=== PATIENT | male | born 1990 | race Caucasian/White ===

== ENCOUNTER 2021-08-05 06:53 | Inpatient (IN) | payer BC ==
[~2021-08-05] VITALS: Ht 167.6 cm; Wt 79.4 kg
[2021-08-05 07:50] LABS: HEMOGLOBIN 13.2 gm/dl (14.0-17.5); RED BLOOD COUNT 4.2 M/UL (4.20-5.50); WHITE BLOOD COUNT 10.2 K/UL (4.5-11.0)
[2021-08-05 08:11] LABS: BUN/CREATININE RATIO 20 (0-10)
[2021-08-06 05:23] LABS: HEMOGLOBIN 12.6 gm/dl (14.0-17.5); RED BLOOD COUNT 4.03 M/UL (4.20-5.50)
[2021-08-06 05:25] LABS: WHITE BLOOD COUNT 7.3 K/UL (4.5-11.0)
[2021-08-06 05:52] LABS: BUN/CREATININE RATIO 20 (0-10)
[2021-08-07 03:16] LABS: BUN/CREATININE RATIO 32 (0-10)
[2021-08-07] MEDS ORDERED: MEDROL TAB 4 MG4 MG PO (16:14)
[2021-08-07] MEDS ORDERED: INDOCIN 50 MG C50 MG PO (16:14)
[2021-08-07] MEDS ORDERED: PROTONIX40 MG PO (16:14)
== END 2021-08-07 17:30 | disposition home or self-care (01) | DRG 287 ==
LOC: ER1 06:53 → PROG CARE 09:04 → CDU 09:04 → CCU 14:23 → PROG CARE 08-06 18:11
PROVIDERS: Physician Assistant Medical; Student in an Organized Health Care Education/Training Program; ADMIT Internal Medicine
PROC: B24BZZZ Ultrasonography of Heart with Aorta (ICD-10-PCS; principal; 2021-08-05)
PROC: 4A023N7 Measurement of Cardiac Sampling and Pressure, Left Heart, Percutaneous Approach (ICD-10-PCS; 2021-08-05)
PROC: B2111ZZ Fluoroscopy of Multiple Coronary Arteries using Low Osmolar Contrast (ICD-10-PCS; 2021-08-05)
PROC: 3E0333Z Introduction of Anti-inflammatory into Peripheral Vein, Percutaneous Approach (ICD-10-PCS; 2021-08-05)
PROC: 8E0ZXY6 Isolation (ICD-10-PCS; 2021-08-05)
DX: I30.9 Acute pericarditis, unspecified (principal); I08.1 Rheumatic disorders of both mitral and tricuspid valves; U09.9 Post COVID-19 condition, unspecified; Z98.890 Other specified postprocedural states
CPT/HCPCS: ECHO; 36415; 71045; 80048; 80053; 80076; 82550; 82553; 82728; 83615; 83735; 83880; 84484; 85025; 85027; 85379; 86140; 93005; 93306; 96374; 99285; C1769; C1887; J0461; J0583; J1100; J1644; J2250; J2270; J2370; J2405; J3010; J7040; Q9965; U0002

== ENCOUNTER 2021-09-07 15:14 | Emergency (ER) | payer BC ==
[~2021-09-07 15:14] MED LIST: INDOCIN 50 MG C50 MG PO; MEDROL TAB 4 MG4 MG PO; PROTONIX40 MG PO
[2021-09-07 16:11] LABS: HEMOGLOBIN 14.9 gm/dl (14.0-17.5); RED BLOOD COUNT 4.66 M/UL (4.20-5.50); WHITE BLOOD COUNT 6.7 K/UL (4.5-11.0)
[2021-09-07 16:32] LABS: BUN/CREATININE RATIO 14 (0-10)
[2021-09-07] MEDS ORDERED: INDOMETHACIN50 MG PO (22:02)
[2021-09-07] MEDS ORDERED: PREDNISONE20 MG PO (22:02)
[2021-09-07] MEDS ORDERED: PANTOPRAZOLE SO20 MG PO (22:02)
== END 2021-09-07 22:13 | disposition home or self-care (01) ==
LOC: ER1 15:14
PROVIDERS: Nurse Practitioner
DX: R07.89 Other chest pain (principal); I25.2 Old myocardial infarction
CPT/HCPCS: 71045; 80053; 82550; 82553; 83735; 84484; 85025; 93005; 96374; 99284; J1885; Q9967